=== PATIENT | male | born 1955 | race Caucasian/White ===

== ENCOUNTER 2017-03-12 20:27 | Emergency (ER) | payer MEDICAID ==
[~2017-03-12] VITALS: Ht 175.3 cm; Wt 127.3 kg
[2017-03-12 20:51] VITALS: BP 145/70; PULSE 78; RESP 16; TEMP 98.7; O2SAT 100
[2017-03-12] MEDS ORDERED: SODIUM CHLORIDE 0.9% FLUSH 5 ML FLUSH IV FLUSH PRN (21:15)
[2017-03-12] MEDS ORDERED: SIMV20TA PO (21:29)
[2017-03-12] MEDS ORDERED: OMEP20TA PO (21:29)
[2017-03-12] MEDS ORDERED: WARF-58 PO (21:29)
[2017-03-12] MEDS ORDERED: AMLO10TA2 PO (21:29)
[2017-03-12] MEDS ORDERED: OXYC1TAB35 PO (21:29)
[2017-03-12] MEDS ORDERED: CHOL1CAP34 PO (21:29)
[2017-03-12] MEDS ORDERED: LORA-373 PO (21:29)
[2017-03-12] MEDS ORDERED: TEMA30CA PO (21:29)
[2017-03-12] MEDS ORDERED: HYDR-3801 PO (21:29)
[2017-03-12] MEDS ORDERED: GABA400C5 PO (21:29)
[2017-03-12] MEDS ORDERED: NOVOLOGP2 SQ (21:29)
[2017-03-12] MEDS ORDERED: FURO20TA PO (21:29)
[2017-03-12] MEDS ORDERED: ESCI20TA PO (21:29)
--- NOTE | 2017-03-12 21:46 | RADRPT ---
EXAM DATE/TIME: 03/12/2017 21:06 [place] COMPARISON: No previous studies available for comparison. INDICATIONS : Syncope. Patient recently was intubated for pneumonia. MEDICAL HISTORY : Intubation for pneumonia SURGICAL HISTORY : CABG. ENCOUNTER: Initial ACUITY: 1 day PAIN SCORE: 5/10 LOCATION: Bilateral chest FINDINGS: No infiltrate, effusion or pneumothorax demonstrated. Trace atelectasis of both bases. There is mild compensated cardiomegaly. Patient has had previous median sternotomy. CONCLUSION: Trace bibasilar atelectasis and mild compensated cardiomegaly. Esteban Moseley MD on March 12, 2017 at 21:44 Board Certified Radiologist. This report was verified electronically.
[2017-03-12 22:02] VITALS: O2SAT 100
[2017-03-12 22:05] LABS: AUTOMATED NEUTROPHIL # 9.1 TH/MM3 (1.8-7.7); BASOPHIL # 0.1 TH/MM3 (0-0.2); BASOPHIL % 0.6 % (0.0-2.0); EOSINOPHIL # 0.2 TH/MM3 (0-0.4); EOSINOPHIL % 2.1 % (0.0-4.0); HEMATOCRIT 33.7 % (39.0-51.0); HEMO FLAGS DIFF FINAL; LYMPH % 12.9 % (9.0-44.0); LYMPHOCYTE # 1.5 TH/MM3 (1.0-4.8); MEAN CORPUSCULAR HEMOGLOBIN 22.2 PG (27.0-34.0); MONO % 6.3 % (0.0-8.0); NEUT % 78.1 % (16.0-70.0); PLATELET COUNT 203 TH/MM3 (150-450); RED BLOOD COUNT 4.55 MIL/MM3 (4.50-5.90); RED CELL DISTRIBUTION WIDTH 21.6 % (11.6-17.2); WHITE BLOOD COUNT 11.7 TH/MM3 (4.0-11.0)
--- NOTE | 2017-03-12 22:05 | PD ---
HPI Chief Complaint: Altered Mental Status Time Seen by Provider: 20:51 Travel History International Travel<30 days: No Contact w/Intl Traveler<30days: No Traveled to known affect area: No History of Present Illness HPI 62-year-old male with PMH of DM, COPD, mechanical valve, on Coumadin, O2 dependent presents to the ED for evaluation after his states that he was confused at home. She states that he was wearing his nasal cannula without oxygen and he wanted to drive here to the hospital, even though she thinks he is not well enough. She called EMS to have him brought to [place] because she is not happy with the quality of care he received an outside hospital. Apparently the patient was discharged from [facility] today. He was diagnosed with pneumonia and was in the hospital for ~3 weeks, 10 of those days intubated in the ICU. He was discharged today with instructions to obtain a CPAP machine and see a heavy media operator. On presentation the patient states that he feels a little tired but he denies fevers, chills, chest pain, cough, palpitations, nausea, vomiting, abdominal pain, dysuria, back pain, edema in the lower extremities. He is alert and oriented 4. He answers questions and follows commands appropriately. He states "I'm here because my is a pain in the butt." PFSH Past Medical History COPD: Yes (uses O2 at home) Coronary Artery Disease: Yes Diabetes: Yes Patient Takes Glucophage: No Genitourinary: Yes (alcantara catheter in place, acute kidney failure) Hypertension: Yes Neurologic: Yes (neuropathy) Past Surgical History Cardiac Surgery: Yes (2003, valve replacement) Other Surgery: Yes (hernia repair) Social History Alcohol Use: No Tobacco Use: No Substance Use: No Allergies-Medications (Allergen,Severity, Reaction): Coded Allergies: celecoxib (Verified Allergy, Unknown, 03/12/17) Uncoded Allergies: steroids (Adverse Reaction, Unknown, 03/12/17) kidney failure? Reported Meds & Prescriptions Reported Meds & Active Scripts Active Reported Lorazepam 0.5 Mg Tab 0.5 Mg PO BID PRN Novolog Inj (Insulin Aspart) 1,000 Unit/10 Ml Vial 0 SQ DIRECTED Sliding Scale as directed. Oxycodone-Acetaminophen 7.5-325 mg Tab 1 Tab PO Q6H PRN Simvastatin 20 Mg Tab 20 Mg PO HS Temazepam 30 Mg Cap 30 Mg PO HS PRN Gabapentin 400 Mg Cap 400 Cap PO HS Vitamin D3 (Cholecalciferol) 50,000 Unit Cap 50,000 Units PO Q7D Omeprazole 20 Mg Tab 20 Mg PO DAILY Warfarin 3 Mg Tab 3 Mg PO DAILY Amlodipine (Amlodipine Besylate) 10 Mg Tab 10 Mg PO DAILY Escitalopram (Escitalopram Oxalate) 20 Mg Tab 20 Mg PO DAILY Furosemide 20 Mg Tab 20 Mg PO DAILY Hydralazine (Hydralazine HCl) 100 Mg Tab 50 Mg PO BID Take with meals Review of Systems Except as stated in HPI: all other systems reviewed are Neg Physical Exam Narrative GENERAL: Well-nourished, well-developed obese white male in no acute distress. On 2 L O2 nasal cannula SKIN: Focused skin assessment warm/dry. Well-healed surgical scar in the midline of the chest, no signs of infection. HEAD: Normocephalic. EYES: No scleral icterus. No injection or drainage. NECK: Supple, trachea midline. No JVD or lymphadenopathy. CARDIOVASCULAR: Regular rate and rhythm without murmurs, gallops, or rubs. RESPIRATORY: Breath sounds clear and equal bilaterally. No accessory muscle use. GASTROINTESTINAL: Abdomen soft, non-tender, nondistended. MUSCULOSKELETAL: No cyanosis, or edema. NEUROLOGICAL: Awake and alert. Cranial nerves II through XII intact. Motor and sensory grossly within normal limits. Five out of 5 muscle strength in all muscle groups. Normal speech. BACK: Nontender without obvious deformity. No CVA tenderness. Data Data Last Documented VS Vital Signs Date Time Temp Pulse Resp B/P (MAP) Pulse Ox O2 Delivery O2 Flow Rate FiO2 03/12/17 22:02 100 Nasal Cannula 2.00 03/12/17 20:51 98.7 78 16 145/70 (95) Orders Orders Electrocardiogram (03/12/17 21:03) Ammonia (03/12/17 21:03) Complete Blood Count With Diff (03/12/17 21:03) Comprehensive Metabolic Panel (03/12/17 21:03) Creatine Kinase (Cpk) (03/12/17 21:03) Prothrombin Time / Inr (Pt) (03/12/17 21:03) Act Partial Throm Time (Ptt) (03/12/17 21:03) Troponin I (03/12/17 21:03) Urinalysis - C+S If Indicated (03/12/17 21:03) Chest, Single Ap (03/12/17 21:03) Blood Glucose (03/12/17 21:03) Ecg Monitoring (03/12/17 21:03) Iv Access Insert/Monitor (03/12/17 21:03) Oximetry (03/12/17 21:03) Sodium Chloride 0.9% Flush (Ns Flush) (03/12/17 21:15) Drug Screen, Random Urine (03/12/17 21:03) Alcohol (Ethanol) (03/12/17 21:03) Psych Screen (03/12/17 21:03) Blood Gas Venous (Vbg) (03/12/17 22:33) Urine Culture (03/12/17 21:45) Labs Laboratory Tests Test 03/12/17 21:45 03/12/17 22:40 White Blood Count 11.7 TH/MM3 Red Blood Count 4.55 MIL/MM3 Hemoglobin 10.1 GM/DL Hematocrit 33.7 % Mean Corpuscular Volume 74.0 FL Mean Corpuscular Hemoglobin 22.2 PG Mean Corpuscular Hemoglobin Concent 30.0 % Red Cell Distribution Width 21.6 % Platelet Count 203 TH/MM3 Mean Platelet Volume 9.5 FL Neutrophils (%) (Auto) 78.1 % Lymphocytes (%) (Auto) 12.9 % Monocytes (%) (Auto) 6.3 % Eosinophils (%) (Auto) 2.1 % Basophils (%) (Auto) 0.6 % Neutrophils # (Auto) 9.1 TH/MM3 Lymphocytes # (Auto) 1.5 TH/MM3 Monocytes # (Auto) 0.7 TH/MM3 Eosinophils # (Auto) 0.2 TH/MM3 Basophils # (Auto) 0.1 TH/MM3 CBC Comment DIFF FINAL Differential Comment Prothrombin Time 59.7 SEC Prothromb Time International Ratio 5.0 RATIO Activated Partial Thromboplast Time 38.5 SEC Urine Color YELLOW Urine Turbidity HAZY Urine pH 5.5 Urine Specific [place] 1.017 Urine Protein 100 mg/dL Urine Glucose (UA) NEG mg/dL Urine Ketones NEG mg/dL Urine Occult Blood MOD Urine Nitrite NEG Urine Bilirubin NEG Urine Urobilinogen LESS THAN 2.0 MG/DL Urine Leukocyte Esterase MOD Urine RBC /hpf Urine WBC 17 /hpf Urine Bacteria RARE /hpf Urine Yeast (Budding) OCC Microscopic Urinalysis Comment CULTURE INDICATED Blood Urea Nitrogen 51 MG/DL Creatinine 1.26 MG/DL Random Glucose 89 MG/DL Total Protein 7.4 GM/DL Albumin 3.5 GM/DL Calcium Level 9.2 MG/DL Alkaline Phosphatase 66 U/L Aspartate Amino Transf (AST/SGOT) 74 U/L Alanine Aminotransferase (ALT/SGPT) 125 U/L Total Bilirubin 0.6 MG/DL Sodium Level 138 MEQ/L Potassium Level 6.4 MEQ/L Chloride Level 109 MEQ/L Carbon Dioxide Level 22.9 MEQ/L Anion Gap 6 MEQ/L Estimat Glomerular Filtration Rate 58 ML/MIN Ammonia 30 MCMOL/L Total Creatine Kinase 120 U/L Troponin I LESS THAN 0.02 NG/ML Urine Opiates Screen NEG Urine Barbiturates Screen NEG Urine Amphetamines Screen NEG Urine Benzodiazepines Screen POS Urine Cocaine Screen NEG Urine Cannabinoids Screen NEG Ethyl Alcohol Level LESS THAN 3 MG/DL Blood Gas Puncture Site PIV Blood Gas Patient Temperature 98.6 Venous Blood pH 7.41 Venous Blood Partial Pressure CO2 37 mmHg Venous Blood Partial Pressure O2 50 mmHg Venous Blood HCO3 23 mmol/L Venous Blood Oxygen Saturation 83 % Venous Blood Oxygen Content 11.8 Vol % Venous Blood Base Excess -0.7 mmol/L Oxygen Delivery Device NASAL CANNULA Blood Gas Liter Flow 2 L/M MDM Medical Decision Making Medical Screen Exam Complete: Yes Emergency Medical Condition: Yes Differential Diagnosis COPD exacerbation versus CHF versus PNA versus other Narrative Course 62-year-old male with PMH of DM, COPD, mechanical valve, on Coumadin presents to the ED for evaluation after his states that he was confused at home. She called EMS to have him brought to [place] because she is not happy with the quality of care he received an outside hospital. Apparently the patient was discharged from [facility] today. He was diagnosed with pneumonia and was in the hospital for ~3 weeks, 10 of those days intubated in the ICU. On presentation the patient states that he feels a little tired but he denies fevers, chills, chest pain, cough, palpitations, nausea, vomiting, abdominal pain, dysuria, back pain, edema in the lower extremities. He is A&O 4. He answers questions and follows commands appropriately. He states "I'm here because my is a pain in the butt." Vitals reviewed. On physical exam there is no appreciable M/R/G. The chest is CTAB, abdomen soft and nontender. No lower extremity edema. No focal neuro deficits. EKG: Rate 76, sinus rhythm. Normal intervals. Normal axis. No acute ST changes. Reviewed by Dr. Clark. CXR: Trace bibasilar atelectasis and mild compensated cardiomegaly The patient is signed out to Dr. Clark at change of shift with labs pending. Please see his note for disposition. Lor Scott Mar 12, 2017 22:05
[2017-03-12 22:29] LABS: BACTERIA, URINE RARE /hpf; BLOOD, URINE MOD (NEG); COMMENT (UR) CULTURE INDICATED; CULTURE IF INDICATED CULTURE INDICATED; GLUCOSE,URINE NEG (NEG); KETONE, URINE NEG (NEG); NITRITE,URINE NEG (NEG); PH, URINE 5.5 (5.0-8.5); URINE COLOR YELLOW (YELLW/STRAW)
[2017-03-12 22:38] LABS: ALT (GPT) 125 U/L (12-78)
[2017-03-13 03:57] LABS: BLOOD GAS VENOUS BASE EXCESS -0.7 mmol/L (-2-2); BLOOD GAS VENOUS HCO3 23 mmol/L (22-26); BLOOD GAS VENOUS O2 CONTENT 11.8 Vol % (9.0-17.0); BLOOD GAS VENOUS O2 HGB SAT 83 % (70-76); BLOOD GAS VENOUS PCO2 37 mmHg (44-48); BLOOD GAS VENOUS PO2 50 mmHg (35-40); BLOOD GAS VENOUS pH 7.41 (7.360-7.400); CRITICAL VALUE NO; TEMP CORR TO 98.6
[2017-03-13 03:58] LABS: DRAW SITE PIV; LITER FLOW 2 L/M; OXYGEN DEVICE NASAL CANNULA; STAT YES
--- NOTE | 2017-03-13 03:58 | PD ---
Data Data Last Documented VS Vital Signs Date Time Temp Pulse Resp B/P (MAP) Pulse Ox O2 Delivery O2 Flow Rate FiO2 03/12/17 22:02 100 Nasal Cannula 2.00 03/12/17 20:51 98.7 78 16 145/70 (95) Orders Orders Electrocardiogram (03/12/17 21:03) Ammonia (03/12/17 21:03) Complete Blood Count With Diff (03/12/17 21:03) Comprehensive Metabolic Panel (03/12/17 21:03) Creatine Kinase (Cpk) (03/12/17 21:03) Prothrombin Time / Inr (Pt) (03/12/17 21:03) Act Partial Throm Time (Ptt) (03/12/17 21:03) Troponin I (03/12/17 21:03) Urinalysis - C+S If Indicated (03/12/17 21:03) Chest, Single Ap (03/12/17 21:03) Blood Glucose (03/12/17 21:03) Ecg Monitoring (03/12/17 21:03) Iv Access Insert/Monitor (03/12/17 21:03) Oximetry (03/12/17 21:03) Sodium Chloride 0.9% Flush (Ns Flush) (03/12/17 21:15) Drug Screen, Random Urine (03/12/17 21:03) Alcohol (Ethanol) (03/12/17 21:03) Psych Screen (03/12/17 21:03) Blood Gas Venous (Vbg) (03/12/17 22:33) Urine Culture (03/12/17 21:45) Labs Laboratory Tests Test 03/12/17 21:45 03/12/17 22:40 White Blood Count 11.7 TH/MM3 Red Blood Count 4.55 MIL/MM3 Hemoglobin 10.1 GM/DL Hematocrit 33.7 % Mean Corpuscular Volume 74.0 FL Mean Corpuscular Hemoglobin 22.2 PG Mean Corpuscular Hemoglobin Concent 30.0 % Red Cell Distribution Width 21.6 % Platelet Count 203 TH/MM3 Mean Platelet Volume 9.5 FL Neutrophils (%) (Auto) 78.1 % Lymphocytes (%) (Auto) 12.9 % Monocytes (%) (Auto) 6.3 % Eosinophils (%) (Auto) 2.1 % Basophils (%) (Auto) 0.6 % Neutrophils # (Auto) 9.1 TH/MM3 Lymphocytes # (Auto) 1.5 TH/MM3 Monocytes # (Auto) 0.7 TH/MM3 Eosinophils # (Auto) 0.2 TH/MM3 Basophils # (Auto) 0.1 TH/MM3 CBC Comment DIFF FINAL Differential Comment Prothrombin Time 59.7 SEC Prothromb Time International Ratio 5.0 RATIO Activated Partial Thromboplast Time 38.5 SEC Urine Color YELLOW Urine Turbidity HAZY Urine pH 5.5 Urine Specific [place] 1.017 Urine Protein 100 mg/dL Urine Glucose (UA) NEG mg/dL Urine Ketones NEG mg/dL Urine Occult Blood MOD Urine Nitrite NEG Urine Bilirubin NEG Urine Urobilinogen LESS THAN 2.0 MG/DL Urine Leukocyte Esterase MOD Urine RBC /hpf Urine WBC 17 /hpf Urine Bacteria RARE /hpf Urine Yeast (Budding) OCC Microscopic Urinalysis Comment CULTURE INDICATED Blood Urea Nitrogen 51 MG/DL Creatinine 1.26 MG/DL Random Glucose 89 MG/DL Total Protein 7.4 GM/DL Albumin 3.5 GM/DL Calcium Level 9.2 MG/DL Alkaline Phosphatase 66 U/L Aspartate Amino Transf (AST/SGOT) 74 U/L Alanine Aminotransferase (ALT/SGPT) 125 U/L Total Bilirubin 0.6 MG/DL Sodium Level 138 MEQ/L Potassium Level 6.4 MEQ/L Chloride Level 109 MEQ/L Carbon Dioxide Level 22.9 MEQ/L Anion Gap 6 MEQ/L Estimat Glomerular Filtration Rate 58 ML/MIN Ammonia 30 MCMOL/L Total Creatine Kinase 120 U/L Troponin I LESS THAN 0.02 NG/ML Urine Opiates Screen NEG Urine Barbiturates Screen NEG Urine Amphetamines Screen NEG Urine Benzodiazepines Screen POS Urine Cocaine Screen NEG Urine Cannabinoids Screen NEG Ethyl Alcohol Level LESS THAN 3 MG/DL Blood Gas Puncture Site PIV Blood Gas Patient Temperature 98.6 Venous Blood pH 7.41 Venous Blood Partial Pressure CO2 37 mmHg Venous Blood Partial Pressure O2 50 mmHg Venous Blood HCO3 23 mmol/L Venous Blood Oxygen Saturation 83 % Venous Blood Oxygen Content 11.8 Vol % Venous Blood Base Excess -0.7 mmol/L Oxygen Delivery Device NASAL CANNULA Blood Gas Liter Flow 2 L/M MDM Supervised Visit with ALAN: Yes Narrative Course Patient care assumed from Debbie Scott at 2300. This is a 62-year-old male presents emergency department for evaluation of what appears to be mild delirium. He was recently hospitalized at the [facility] for pneumonia and spent approximately a week on mechanical ventilation and intubation. His states she's just been a little foggy from time to time. Currently patient is alert and awake and oriented in no distress. Neurologically intact. No fevers. He is now not taking any antibiotics is finished this course. His labs are significant for urinary tract infection and he has an indwelling catheter. He also has some hyperkalemia to 6.4 with moderate hemolysis reported on paper lab report as we are currently in down time. His EKG is absolutely normal and there is no changes with hyperkalemia. The patient is giving anxious and would like to go home. At this point he is calm and cooperative is not altered at all seems as I can tell, they would like to take him home. I discussed trying to return to normal life with holding back any strenuous exertion for the time being. I discussed follow-up with his primary care physician as soon as possible and discussed return to ED criteria. He was discharged to self-care Disposition: 01 DISCHARGE HOME Condition: Stable Jeremiah Clark MD Mar 13, 2017 03:57
[2017-03-13 04:10] LABS: BLOOD UREA NITROGEN 51 MG/DL (7-18); GLOMERULAR FILTRATION RATE 58 ML/MIN (>89)
[2017-03-13 04:11] LABS: ALKALINE PHOSPHATASE 66 U/L (45-117); ANION GAP 6 MEQ/L (5-15); AST (GOT) 74 U/L (15-37); BICARBONATE 22.9 MEQ/L (21.0-32.0); CHLORIDE 109 MEQ/L (98-107); POTASSIUM 6.4 MEQ/L (3.5-5.1); SODIUM (NA) 138 MEQ/L (136-145); TOTAL BILIRUBIN ADULT 0.6 MG/DL (0.2-1.0)
[2017-03-13 04:12] LABS: CREATINE KINASE 120 U/L (39-308)
[2017-03-13 04:14] LABS: APTT (PATIENT) 38.5 SEC (24.3-30.1); PROTHROMBIN TIME - PATIENT 59.7 SEC (9.8-11.6)
--- NOTE | 2017-03-13 11:31 | EKG ---
Date Performed: 03/12/2017 Time Performed: 21:53:59 PTAGE: 62 years EKG: Sinus rhythm NORMAL ECG NO PREVIOUS TRACING DOCTOR: Noe Ordonez Interpretating Date/Time 03/13/2017 11:29:38
== END 2017-03-13 19:31 | disposition home or self-care (01) ==
LOC: NEPC 20:27
DX: R41.0 Disorientation, unspecified (principal); E11.9 Type 2 diabetes mellitus without complications; J44.9 Chronic obstructive pulmonary disease, unspecified; Z99.81 Dependence on supplemental oxygen; Z87.01 Personal history of pneumonia (recurrent); I10 Essential (primary) hypertension; Z95.2 Presence of prosthetic heart valve; Z79.01 Long term (current) use of anticoagulants
CPT/HCPCS: 71010; 80053; 80307; 81001; 82140; 82550; 82805; 84484; 85025; 85610; 85730; 87086; 87106; 93005; 99285